=== PATIENT | female | born 1985 | race Caucasian/White ===

== ENCOUNTER 2022-12-08 01:59 | Emergency (ER) | payer OTHER, MEDICARE ==
[~2022-12-08] VITALS: Ht 157.5 cm; Wt 69.8 kg
[2022-12-08] MEDS ORDERED: AMITRIPTYLINE H50 MG PO (02:15)
[2022-12-08] MEDS ORDERED: CLEOCIN HCL300 MG PO (04:10)
--- OUTSIDE RECORDS SUMMARY | 2022-12-08 04:36 | XMS ---
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 [facility] VISIT COUNT (12 MO.) 1 SANIA Pastor TOTAL 1 NOTE: Visits indicate total known visits. ED/UCC VISIT TRACKING (12 MO.) 12/08/2022 02:00 SANIA Rodriguez OR TYPE: Emergency COMPLAINT: - LIP LACERATION INPATIENT VISIT TRACKING (12 MO.) No inpatient visits to display in this time frame [email or web address]
== END 2022-12-08 04:22 | disposition home or self-care (01) ==
LOC: ED 01:59 → EDBD 02:00 → ED 02:00
DX: S01.511A Laceration without foreign body of lip, initial encounter (principal); G43.909 Migraine, unspecified, not intractable, without status migrainosus; Z88.2 Allergy status to sulfonamides; Z79.899 Other long term (current) drug therapy; Z23 Encounter for immunization; W01.10XA Fall on same level from slipping, tripping and stumbling with subsequent striking against unspecified object, initial encounter
CPT/HCPCS: 12052; 90471; 90714; 99283-25